=== PATIENT | female | born 2000 | race Caucasian/White ===

== ENCOUNTER → 2021-06-28 13:19 | Outpatient (CLI) | payer OTHER, SELFPAY ==
[2021-06-28 19:35] LABS: Coronavirus 19, PCR Not Detected (NotDetected); Influenza A, PCR Not Detected (NotDetected); Influenza B, PCR Not Detected (NotDetected)
== END ==
PROVIDERS: Visit Provider Nurse Practitioner Family
DX: Z20.822 Contact with and (suspected) exposure to COVID-19 (principal)
CPT/HCPCS: U0003

== ENCOUNTER 2022-10-30 15:38 | Emergency (ER) | payer OTHER, SELFPAY ==
--- NOTE | 2022-10-30 15:40 | PC.NURSE ---
NURY HAMILTON at
--- NOTE | 2022-10-30 15:41 | CT_ITS ---
PROCEDURE INFORMATION: Exam: CT Head Without Contrast Exam date and time: 10/30/2022 5:16 PM Age: 22 years old Clinical indication: Syncope and collapse; Additional info: Head injury TECHNIQUE: Imaging protocol: Computed tomography of the head without contrast. Radiation optimization: All CT scans at this facility use at least one of these dose optimization techniques: automated exposure control; mA and/or kV adjustment per patient size (includes targeted exams where dose is matched to clinical indication); or iterative reconstruction. COMPARISON: No relevant prior studies available. FINDINGS: Brain: No evidence of acute parenchymal hemorrhage, extra-axial collection or local regional mass effect. Cerebral ventricles: The ventricles, sulci and cisterns are normal in size and configuration. No hydrocephalus or midline structure shift Pituitary gland and sella: Sellar/parasellar structures, orbits and craniocervical junction are unremarkable Paranasal sinuses: Visualized sinuses are unremarkable. No fluid levels. Mastoid air cells: Visualized mastoid air cells are well aerated. Bones/joints: No calvarial fracture Soft tissues: Unremarkable. IMPRESSION: No acute intracranial abnormality. No calvarial fracture.
--- NOTE | 2022-10-30 15:42 | HMH.EDGENADL ---
Discharge Plan Disposition Patient Disposition: Home, Self-Care Condition: Good Chief Complaint: Altered Mental Status Referrals Follow up/Referrals: Provider,Referral, [Primary Care Provider] - See instructions Clinical Impressions Clinical Impression: Migraine headache with aura Instructions Patient Instructions: DI for Altered Mental Status, DI for Migraine, Migraine -- Adult Discharge ED Provider: Nik Valdez Adult HPI General Chief complaint: Altered Mental Status Stated complaint: ams Time Seen by Provider: 10/30/22 15:40 Mode of Arrival: EMS History of Present Illness HPI narrative: Patient is a 22-year-old female with no significant past medical history who presents via EMS for acute alteration of mental status and headache. She states she was driving to work here, became disoriented and had difficulty coming here ended up driving closer to town, states she had onset of severe global headache. She states she used to get migraines but has not had any for quite some time, headache was somewhat quick in onset but not maximal intensity within less than a minute not described as thunderclap or traumatic in any way. She states she had difficulty orienting herself and differentiating objects. EMS was called and report some mild improvement in symptoms thus far. They describe that she had difficulty getting words out but not appear to have any facial asymmetry or focal deficits. Prehospital glucose was 93. At time of arrival she is able to converse albeit somewhat deliberately and slowly but without marked dysarthria. She denies any history of seizure, denies any recent head trauma, denies any recent illnesses, fevers, neck pain or any other symptoms. IV was established and she received approximately half a liter of normal saline prior to arrival. Related Data Allergies Allergy/AdvReac Type Severity Reaction Status Date / Time No Known Allergies Allergy Verified 10/30/22 16:20 [facility] Disclaimer: The information contained in this section may have been updated after the patient was seen, as this information can be updated by other users. Social History Smoking Status: Never smoker alcohol intake: never current occupational status: other Travel in the last 8 weeks: None ROS Obtained: Yes Systems reviewed as appropriate & no additional complaints except as documented Constitutional Constitutional: Reports system reviewed and no additional complaints, except as documented Eyes Eyes: Reports system reviewed and no additional complaints, except as documented ENT Ears, Nose, Mouth, and Throat: Reports system reviewed and no additional complaints, except as documented Cardiovascular Cardiovascular: Reports system reviewed and no additional complaints, except as documented Respiratory Respiratory: Reports system reviewed and no additional complaints, except as documented Gastrointestinal Gastrointestingal: Reports system reviewed and no additional complaints, except as documented Genitourinary Female Genitourinary: Reports system reviewed and no additional complaints, except as documented Musculoskeletal Musculoskeletal: Reports system reviewed and no additional complaints, except as documented Integumentary/Breasts Skin/Breast: Reports system reviewed and no additional complaints, except as documented Neurologic Neurologic: Reports system reviewed and no additional complaints, except as documented Endocrine Endocrine: Reports system reviewed and no additional complaints, except as documented Hematologic/Lymphatic Henatologic/Lymphatic: Reports system reviewed and no additional complaints, except as documented Allergic/Immunologic Allergic/Immunologic: Reports system reviewed and no additional complaints, except as documented Physical Exam General General appearance: alert and in no apparent distress Head Head exam: atraumatic, normocephal
--- NOTE | 2022-10-30 15:44 | ECG_ITS ---
APPROVED REPORT Exam: Resting ECG HR:110 bpm ECG Measurements Heart Rate 110 AXES ME 150 P 60 QRSd 84 QRS 74 QT 336 T 37 QTc 401 Conclusion SINUS TACHYCARDIA POSSIBLE LEFT ATRIAL ENLARGEMENT [-0.1mV P-WAVE IN V1/V2] MODERATE ST DEPRESSION [0.05+ mV ST DEPRESSION] ABNORMAL ECG UNCONFIRMED REPORT Electronically signed by : Gibran Joe MD 10/31/2022 21:15:59
[2022-10-30 16:00] VITALS: BP 119/81; PULSE 103; O2SAT 99
[2022-10-30 16:14] VITALS: BP 101/77; PULSE 123; RESP 20; TEMP 36.8; O2SAT 100; BMI 19.7
[2022-10-30 16:30] VITALS: BP 122/75; PULSE 106; O2SAT 98
[2022-10-30 16:55] LABS: Basophils # 0.1 K/mm3 (0-0.2); Basophils % 0.9 % (0.1-2.0); Chloride 103 mmol/L (98-107); Eosinophils # 0.1 K/mm3 (0.0-0.4); Eosinophils % 0.9 % (0.1-12.0); Hematocrit 42.2 % (37.0-47.0); Hemoglobin 14.3 g/dL (12.2-16.2); Lymphocytes # 1.2 K/mm3 (0.7-4.5); Lymphocytes % 13.2 % (10-50); Mean Corpuscular HGB Conc 33.9 g/dL (31.8-35.4); Mean Corpuscular Hemoglobin 29.7 pg (27.0-31.2); Mean Corpuscular Volume 87.7 fl (81-99); Mean Platelet Volume 8.2 fl (7.4-10.4); Monocytes # 0.4 K/mm3 (0.1-1.0); Monocytes % 4.6 % (1.7-9.3); Neutrophils # 7.1 K/mm3 (1.8-7.8); Neutrophils % 80.4 % (37.0-80.0); Platelet Count 267 K/mm3 (142-424); Potassium 3.7 mmoL/L (3.5-5.1); Red Blood Count 4.81 M/mm3 (4.20-5.40); Red Cell Distribution Width 12.8 % (11.5-17.5); Sodium 137 mmol/L (136-145); White Blood Count 8.8 K/mm3 (4.8-10.8)
[2022-10-30 16:58] LABS: Alanine Aminotransferase 26 U/L (12-78); Albumin Level 4.3 g/dl (3.5-5.0); Albumin/Globulin Ratio 1.4 (1.1-1.8); Alkaline Phosphatase 64 U/L (38-126); Anion Gap 12.7 mEq/L (5-15); Aspartate Amino Transferase 30 U/L (14-36); Bilirubin,Total 1.6 mg/dl (0.2-1.3); Blood Urea Nitrogen 12 mg/dl (7-17); Carbon Dioxide 25 mmol/L (22.0-30.0); Creatinine Clearance Estimated 104 mL/min (50-200); Estimated Glomerular Filt Rate 105 ml/min (>60); GFR (African American) 127 ML/MIN (>60); Globulin 3.1 g/dL (1.3-3.2); Total Protein,Serum 7.4 g/dl (6.3-8.2)
[2022-10-30 16:59] LABS: Calcium 8.8 mg/dl (8.4-10.2); Glucose 127 mg/dl (74-100)
[2022-10-30 17:00] VITALS: BP 106/67; PULSE 98; RESP 24
--- NOTE | 2022-10-30 17:01 | PC.NURSE ---
covid/flu swab sent to lab
[2022-10-30 17:03] LABS: Coronavirus 19, PCR Not Detected (NotDetected); Influenza A, PCR Not Detected (NotDetected); Influenza B, PCR Not Detected (NotDetected)
[2022-10-30 17:06] LABS: HCG Qualitative, Serum Negative (Negative)
[2022-10-30 18:19] VITALS: BP 105/69; PULSE 101; RESP 16; TEMP 36.8; O2SAT 96
== END 2022-10-30 18:19 | disposition home or self-care (01) ==
PROVIDERS: Emergency Provider Emergency Medicine
DX: G43.109 Migraine with aura, not intractable, without status migrainosus (principal); Z20.822 Contact with and (suspected) exposure to COVID-19
CPT/HCPCS: 70450; 80053; 84703; 85025; 93005; 96361; 96374; 96375; 99285; C9803; U0003; U0005

== ENCOUNTER → 2022-11-25 11:00 | Outpatient (CLI) | payer OTHER, SELFPAY ==
[2022-11-25 21:25] LABS: Thyroid Stimulating Hormone 1.15 uIU/mL (0.465-4.68)
[2022-11-25 22:01] LABS: Vitamin B12 426 pg/mL (239-931)
[2022-11-25 22:14] LABS: Free T4 (Free Thyroxine) 1.01 ng/dl (0.78-2.19)
[2022-11-25 22:43] LABS: Folate 7.05 ng/mL
== END ==
PROVIDERS: Visit Provider Nurse Practitioner Family
DX: R00.0 Tachycardia, unspecified (principal); R40.4 Transient alteration of awareness; R51.9 Headache, unspecified; R53.82 Chronic fatigue, unspecified; Z87.898 Personal history of other specified conditions
CPT/HCPCS: 36415; 82607; 82746; 84439; 84443

== ENCOUNTER → 2022-12-11 08:45 | Day surgery (SDC) | payer OTHER, SELFPAY ==
[2022-12-11 09:10] VITALS: BP 122/79; PULSE 100; RESP 18; TEMP 36.7; O2SAT 98
--- NOTE | 2022-12-11 10:23 | MR_ITS ---
FINAL REPORT TECHNIQUE: Multiplanar and multisequence imaging of the brain was obtained before and after contrast administration. CLINICAL HISTORY: seizure. MIGRAINE HEADACHE. FINDINGS: The gyri and sulci are within normal limits for age. There is no mass effect or midline shift. Signal intensity is normal. No hydrocephalus. The cerebellum and brainstem have a normal appearance. There are no areas of restricted diffusion on diffusion weighted images to suggest acute infarct. Soft tissues are without acute abnormality. No pathologic contrast enhancement is identified. IMPRESSION: No acute intracranial abnormality and no pathologic contrast enhancement. Reviewed, Interpreted and Dictated by Ioana Tamayo MD Transcribed by Clarisa Aguiar Authenticated and [facility]
--- NOTE | 2022-12-11 11:06 | EXP.TILT ---
Findings:: Procedure: Upright tilt table test Requesting physician: Belinda Aggarwal MD Indication: sporadic syncopal episodes since age 16, tachycardia, transient alteration of awareness Meds: Omeprazole as needed Pretest vital signs (supine): BP 121/76 pulse 92, O2sats 100 Procedure summary: Patient was prepared per protocol. She was then tilted into the upright position at 70 degrees for total of 30 minutes. She had no syncope or near syncope. He did experience heart rate fluctuations between 100-113. Maximum heart rate was noted to be 122. Minimum heart rate was noted to be 92. The lowest blood pressure documented was 112/67. Highest BP noted was 121/76. Oxygen saturation remained 100% on room air. She reported no complaints during procedure. Her rhythm was normal sinus rhythm throughout testing. Complications: None Conclusion: Unremarkable upright tilt table test
== END ==
LOC: RT 08:46
PROVIDERS: PCP Family Medicine; Visit Provider Nurse Practitioner Family
DX: R40.4 Transient alteration of awareness (principal); R51.9 Headache, unspecified; R00.0 Tachycardia, unspecified; R53.82 Chronic fatigue, unspecified; Z87.898 Personal history of other specified conditions
CPT/HCPCS: 70553; 93660; A9576